=== PATIENT | female | born 1990 | race Asian ===

== ENCOUNTER 2019-09-19 10:40 | Emergency (ER) | payer OTHER ==
[~2019-09-19] VITALS: Ht 152.4 cm; Wt 51.3 kg
[2019-09-19 11:04] VITALS: BP 106/72
--- NOTE | 2019-09-19 11:26 | NUR ---
29 Y/O FEMALE PRESENTS TO ER FOR #3 RABIES VACCINE. PT STATES SHE GOT BIT BY A DOG ON RIGHT HAND WHILE IN [place]. RECEIVED TWO RABIES VACCINES AND ONE TDAP, WANTS TO RECEIVE LAST RABIES SHOT HERE IN ER. DENIES ANY FEVER/CHILLS/N/V/D. NO ACTIVE BLEEDING, NO OBVIOUS DEFORMITY NOTED DENIES ANY COUGH, SOB, COVID SYMPTOMS
[2019-09-19] MEDS ORDERED: RABIES VACCINE 2.5 IU VIAL IMVAC ONE (11:35)
[2019-09-19 12:07] VITALS: BP 110/72
== END 2019-09-19 12:08 | disposition home or self-care (01) ==
LOC: MED 10:40
DX: S61.451A Open bite of right hand, initial encounter (principal); W54.0XXA Bitten by dog, initial encounter; Y93.89 Activity, other specified; Y92.89 Other specified places as the place of occurrence of the external cause; Y99.8 Other external cause status
CPT/HCPCS: 90471; 90675; 99283

== ENCOUNTER 2019-09-30 10:32 | Emergency (ER) | payer OTHER ==
[~2019-09-30] VITALS: Ht 157.5 cm; Wt 54.9 kg
[2019-09-30 10:42] VITALS: BP 109/71
--- NOTE | 2019-09-30 10:47 | NUR ---
Pt presents to the ER for request vaccination of rabies s/p dog bite 20 days ago which was encountered in [place]. Pt has received 3 doses of rabies and last one was received on 09/19/2019. Denies any pain at this time, healed scarring on rt anterior wrist noticed. PT DENIES ANY FEVER, CP, SOB, OR COUGH AT THIS TIME; PATIENT STATES PAIN OF 0/10 AT THIS TIME; VSS; PATIENT POSITIONED FOR COMFORT; HOB ELEVATED; BEDRAILS UP X1; BED DOWN. ER MD MADE AWARE OF PT STATUS.
[2019-09-30] MEDS ORDERED: RABIES VACCINE 2.5 IU VIAL IMVAC SCH (10:55)
--- NOTE | 2019-09-30 10:56 | NUR ---
Dr. Little is evaluating the patient at bedside.
[2019-09-30] MEDS ORDERED: RABIES VACCINE 2.5 IU VIAL IMVAC ONE (10:59)
[2019-09-30 11:23] VITALS: BP 105/68
--- NOTE | 2019-09-30 11:23 | NUR ---
Patient discharged with v/s stable. Written and verbal after care instructions given and explained. Patient verbalized understanding. Ambulatory with steady gait. All questions addressed prior to discharge. Advised to follow up with PMD.
== END 2019-09-30 11:23 | disposition home or self-care (01) ==
LOC: MED 10:32
DX: S61.551A Open bite of right wrist, initial encounter (principal); Z29.14 Encounter for prophylactic rabies immune globulin; W54.0XXA Bitten by dog, initial encounter; Y93.89 Activity, other specified; Y92.89 Other specified places as the place of occurrence of the external cause; Y99.8 Other external cause status
CPT/HCPCS: 90471; 90675; 99283